=== PATIENT | female | born 1935 | race Caucasian/White ===

== ENCOUNTER 2018-04-21 21:22 | Outpatient (REF) | payer MEDICARE, SELFPAY ==
[2018-04-21 21:52] LABS: Abs Immature Grans 0.01 k/cumm (0.0-0.09); Absolute Basophil Count 0.02 k/cumm (0.0-0.2); Absolute Eosinophil Count 0.14 k/cumm (0.0-0.7); Absolute Lymphocyte Count 2.03 k/cumm (1.2-3.4); Absolute Monocyte Count 0.64 k/cumm (0.11-0.7); Absolute Neutrophil Count 3.31 k/cumm (1.2-6.7); Basophils % 0.3; Eosinophils % 2.3; HCT 35.4 % (36.0-46.0); HGB 11.7 g/dL (12.0-15.5); Immature Grans % 0.2; Mean Corp. HGB Concentration 33.1 g/dL (32.0-36.0); Mean Corpuscular Hemoglobin 32.3 pg (27.0-33.0); Mean Corpuscular Volume 97.8 fL (80-95); Mean Platelet Volume 10.1 fL (8.0-11.0); Monocytes % 10.4; Neutrophils % 53.8; Platelet Count 362 x1000/uL (130-400); RBC 3.62 m/cumm (4.00-5.20); RBC Distribution Width 13.6 % (11.7-14.6); White Blood Cell Count 6.15 k/cumm (4.4-10.8)
[2018-04-21 22:07] LABS: ALT 29 U/L (12-78); AST 25 U/L (15-37); Albumin 3.7 g/dL (3.4-5.0); Alkaline Phosphatase 74 U/L (46-116); Anion Gap 8.5 mmol/L (3-11); BUN 16 mg/dL (7-18); Bilirubin, Total 0.3 mg/dL (0.2-1.0); CO2 26.5 mmol/L (21.0-32.0); CREATININE 1.03 mg/dL (0.55-1.02); Calcium 8.9 mg/dL (8.5-10.1); Chloride 99 mmol/L (98-107); Glucose 90 mg/dL (70-100); Potassium 4.5 mmol/L (3.5-5.1); Sodium 134 mmol/L (136-145); TSH (W/Ref FT4) 1.31 uIU/mL (0.358-3.74)
== END 2018-04-21 21:42 ==
LOC: NCHCN 21:22
PROVIDERS: PCP Nurse Practitioner Family; Visit Provider Nurse Practitioner Family
DX: I10 Essential (primary) hypertension (principal); R42 Dizziness and giddiness
CPT/HCPCS: 80053; 84443; 85025

== ENCOUNTER 2018-04-26 15:54 | Outpatient (REF) | payer MEDICARE, SELFPAY ==
[2018-04-26 23:50] LABS: Ferritin 98 ng/mL (8-388); Folate 19.5 ng/mL (8.6-20.0); Vitamin B12 617 pg/mL (193-986)
== END 2018-04-26 16:14 ==
LOC: NCHCN 15:54
PROVIDERS: PCP Nurse Practitioner Family; Visit Provider Nurse Practitioner Family
DX: D64.9 Anemia, unspecified (principal); R42 Dizziness and giddiness
CPT/HCPCS: 82607; 82728; 82746

== ENCOUNTER 2018-09-07 11:18 | Outpatient (REF) | payer MEDICARE, SELFPAY ==
[2018-09-07 21:09] LABS: HCT 40.8 % (36.0-46.0); HGB 13.3 g/dL (12.0-15.5); Mean Corp. HGB Concentration 32.6 g/dL (32.0-36.0); Mean Corpuscular Hemoglobin 32.2 pg (27.0-33.0); Mean Corpuscular Volume 98.8 fL (80-95); Mean Platelet Volume 10.5 fL (8.0-11.0); Platelet Count 324 x1000/uL (130-400); RBC 4.13 m/cumm (4.00-5.20); RBC Distribution Width 13.9 % (11.7-14.6); White Blood Cell Count 4.75 k/cumm (4.4-10.8)
[2018-09-08 06:31] LABS: Iron 88 ug/dL (50-175); Total Iron Binding Capacity 305 ug/dL (250-450); Transferrin Sat 29 % (15-50)
== END 2018-09-07 11:38 ==
LOC: NCHCN 11:18
PROVIDERS: PCP Nurse Practitioner Family; Visit Provider Family Medicine
DX: D64.9 Anemia, unspecified (principal)
CPT/HCPCS: 85027; 83540; 83550

== ENCOUNTER 2019-06-21 11:09 | Outpatient (REF) | payer OTHER, SELFPAY ==
[2019-06-21 21:07] LABS: Anion Gap 6.6 mmol/L (3-11); BUN 16 mg/dL (7-18); CO2 28.4 mmol/L (21.0-32.0); CREATININE 0.93 mg/dL (0.55-1.02); Calculated LDL 77 mg/dL; Chloride 103 mmol/L (98-107); Cholesterol 161 mg/dL (<200); Estimated GFR 57.58 (mL/min/1.73m2); Glucose 87 mg/dL (74-106); HDL Cholesterol 70 mg/dL (40-60); Potassium 4.5 mmol/L (3.5-5.1); Sodium 138 mmol/L (136-145); Triglyceride 70 mg/dL (<150)
== END 2019-06-21 11:29 ==
LOC: NCHCN 11:09
PROVIDERS: PCP Nurse Practitioner Family; Visit Provider Family Medicine
DX: I10 Essential (primary) hypertension (principal); Z79.01 Long term (current) use of anticoagulants; Z95.0 Presence of cardiac pacemaker
CPT/HCPCS: 80048; 80061

== ENCOUNTER 2020-05-10 20:00 | Outpatient (REF) | payer OTHER, SELFPAY ==
[2020-05-12 16:41] LABS: COVID-19 RT-PCR Result NEGATIVE (Negative)
== END 2020-05-10 20:20 ==
LOC: NCHCN 20:00
PROVIDERS: PCP Nurse Practitioner Family; Visit Provider Nurse Practitioner Family
DX: R09.81 Nasal congestion (principal)
CPT/HCPCS: U0003

== ENCOUNTER 2020-12-07 14:05 | Outpatient (REF) | payer OTHER, SELFPAY | END 2020-12-07 14:06 | disposition home or self-care (01) | LOC: NCHCN 14:05 | PROVIDERS: PCP Nurse Practitioner Family; Visit Provider Registered Nurse | DX: I10 Essential (primary) hypertension (principal) | CPT/HCPCS: 80048 ==

== ENCOUNTER 2021-11-12 21:00 | Outpatient (REF) | payer MEDICARE, SELFPAY ==
[2021-11-12 21:39] LABS: ALT 23 U/L (14-59); Anion Gap 8.4 mmol/L (3-11); BUN 19 mg/dL (7-18); CO2 27.6 mmol/L (21.0-32.0); Calcium 9.6 mg/dL (8.5-10.1); Calculated LDL 92 mg/dL (<100); Chloride 101 mmol/L (98-107); Cholesterol 178 mg/dL (<200); Estimated GFR 52.69 (mL/min/1.73m2); Glucose 90 mg/dL (74-106); HDL Cholesterol 73 mg/dL (40-60); Potassium 5.4 mmol/L (3.5-5.1); Sodium 137 mmol/L (136-145); Triglyceride 67 mg/dL (<150)
== END 2021-11-12 21:01 | disposition home or self-care (01) ==
LOC: NCHCN 21:00
PROVIDERS: PCP Nurse Practitioner Family; Visit Provider Family Medicine
DX: I10 Essential (primary) hypertension (principal); I48.0 Paroxysmal atrial fibrillation; Z13.220 Encounter for screening for lipoid disorders
CPT/HCPCS: 80048; 80061; 84460

== ENCOUNTER 2022-05-13 13:04 | Outpatient (REF) | payer MEDICARE, SELFPAY ==
[2022-05-13 15:13] LABS: HCT 37.4 % (36.0-46.0); HGB 12.4 g/dL (11.2-15.7); MCH 32.2 pg (27.0-33.0); MCHC 33.2 % (32.0-36.0); MCV 97 fL (80-95); MPV 10.3 fL (8.0-11.0); Platelet Count 328 10^3/uL (130-400); RBC 3.85 10^6/uL (3.93-5.22); RDW 13.2 % (11.7-14.6); RDW-SD 47.5 fL; WBC 5.25 10^3/uL (4.4-10.8)
[2022-05-13 15:27] LABS: Anion Gap 9.5 mmol/L (3-11); BUN 24 mg/dL (7-18); CO2 24.5 mmol/L (21.0-32.0); Calcium 9.4 mg/dL (8.5-10.1); Chloride 101 mmol/L (98-107); Estimated GFR 54.87 (mL/min/1.73m2); Glucose 104 mg/dL (74-106); Potassium 4.4 mmol/L (3.5-5.1); Sodium 135 mmol/L (136-145)
== END 2022-05-13 13:05 | disposition home or self-care (01) ==
LOC: NCHCN 13:04
PROVIDERS: PCP Nurse Practitioner Family; Visit Provider Family Medicine
DX: Z79.01 Long term (current) use of anticoagulants (principal); Z86.39 Personal history of other endocrine, nutritional and metabolic disease
CPT/HCPCS: 80048; 85027

== ENCOUNTER 2022-11-07 12:53 | Outpatient (REF) | payer MEDICARE, SELFPAY ==
[2022-11-07 14:43] LABS: Bilirubin Negative (Negative); Blood Trace-intact (Negative); Clarity Clear (Clear); Glucose Negative (Negative); Ketones Negative (Negative); Leukocyte Esterase Negative (Negative); Nitrite Negative (Negative); Specific Gravity 1.015 (1.005-1.025); Urobilinogen 0.2 mg/dL (Up to 0.2)
[2022-11-07 14:51] LABS: Bacteria Negative HPF (Negative); C & S Indicated? No; Casts Negative LPF (Negative); Crystals Negative HPF (Negative); Epithelial Cells Few HPF (Negative); Mucus Negative (Negative); RBC 0-2 HPF (0-2); WBC 0-2 HPF (0-5)
[2022-11-07 14:53] LABS: Anion Gap 6.9 mmol/L (3-11); BUN 20 mg/dL (7-18); CO2 27.1 mmol/L (21.0-32.0); Calcium 8.9 mg/dL (8.5-10.1); Chloride 101 mmol/L (98-107); Estimated GFR 54.87 (mL/min/1.73m2); Glucose 100 mg/dL (74-106); Potassium 4.6 mmol/L (3.5-5.1); Sodium 135 mmol/L (136-145)
== END 2022-11-07 12:54 | disposition home or self-care (01) ==
LOC: NCHCN 12:53
PROVIDERS: PCP Nurse Practitioner Family; Visit Provider Family Medicine
DX: R10.11 Right upper quadrant pain (principal)
CPT/HCPCS: 80048; 81003; 81015

== ENCOUNTER 2022-11-28 14:57 | Outpatient (REF) | payer MEDICARE, SELFPAY ==
--- OUTSIDE RECORDS SUMMARY | 2022-11-28 15:03 | XMS_ITS | CCD ---
Author Name Unknown Address [address] [place] [address] [phone] Organization Unknown Address [address] [place] [address] [phone] Care Team Providers Care Specialist Field Engineer Name Role Phone TASHA PERRIN Attending Physician [phone] Vital Signs Unknown or Not Available. Allergies Allergy Code Allergy Type Reaction Status No Known Drug Allergies 0 No known drug allergies Active Procedures Unknown or Not Available. History of Immunizations Unknown or Not Available. Problems Unknown or Not Available. Results Unknown or Not Available. Active Medications Medication Code Dose Units Frequency Route Modificatio n Start Date/Time ELIQUIS 5MG ORAL TABLET 0 5 MILLIGRAMS DAILY ORAL 00:33 Prescription Detail TAKE 5 MILLIGRAMS ORAL DAILY Losartan Potassium 25MG Oral Tablet [id number] 25 MILLIGRAMS DAILY ORAL 019 00:33 Prescription Detail TAKE 25 MILLIGRAMS ORAL DAILY Simvastatin 10MG Oral Tablet 486042 10 MILLIGRAMS ORAL 9 00:33 Prescription Detail TAKE 10 MILLIGRAMS ORAL Medications Administered During Visit Unknown or Not Available. Encounters Encounter Diagnosis Diagnosis Code Start Date Pain in right leg [id number] 05/14/2022 Social History Smoking Status Code Start Date End Date Never smoker [id number] Patient Decision Aids Unknown or Not Available. Discharge Instructions You were admitted to [facility] on 05/14/2022 14:58 with a principal diagnosis of Pain in right leg You were discharged from [facility] on 05/14/2022 14:58 Should you have any questions prior to discharge, please contact a member of your healthcare team. If you have left the hospital and have any questions, please contact your primary care physician. Chief Complaint and Reason For Visit Unknown or Not Available. Function Status Unknown or Not Available. Plan of Care Unknown or Not Available. Referral/Transition of Care Unknown or Not Available.
--- OUTSIDE RECORDS SUMMARY | 2022-11-28 15:04 | XMS_ITS | CCD ---
Author Name Unknown Address [address] [place] [address] [phone] Organization Unknown Address [address] [place] [address] [phone] Care Team Providers Care A P Supervisor Name Role Phone TASHA PERRIN Attending Physician [phone] Vital Signs Unknown or Not Available. Allergies [...] ORAL DAILY Losartan Potassium 25MG Oral Tablet 749951 25 MILLIGRAMS DAILY ORAL 019 00:33 Prescription Detail TAKE 25 MILLIGRAMS ORAL DAILY Simvastatin 10MG Oral Tablet 578624 10 MILLIGRAMS ORAL 9 00:33 Prescription Detail TAKE 10 MILLIGRAMS ORAL Medications Administered During Visit Unknown or Not Available. Encounters Encounter Diagnosis Diagnosis Code Start Date Right upper quadrant pain R1011 2022 Social History Smoking Status Code Start Date End Date Never smoker [id number] Patient Decision Aids Unknown or Not Available. Discharge Instructions You were admitted to [facility] on 11/06/2022 08:34 with a principal diagnosis of Right upper quadrant pain You were discharged from [facility] on 11/06/2022 08:34 Should you have any questions prior to discharge, please contact a member of your healthcare team. If you have left the hospital and have any questions, please contact your primary care physician. Chief Complaint and Reason For Visit Chief Complaint Date of Onset RUQ PAIN Function Status Unknown or Not Available. Plan of Care Unknown or Not Available. Referral/Transition of Care Unknown or Not Available.
--- OUTSIDE RECORDS SUMMARY | 2022-11-28 15:04 | XMS_ITS | CCD ---
Author Name Unknown Address [address] [place] [address] [phone] Organization Unknown Address [address], [place] [id number] Care Team Providers Care Infection Control Preventionist Name Role Phone KIM GOLD Attending Physician [phone] KIM GOLD Rounding (Secondary) Physicia n [phone] Vital Signs Unknown or Not Available. Allergies [...] ORAL DAILY Losartan Potassium 25MG Oral Tablet 183089 25 MILLIGRAMS DAILY ORAL 019 00:33 Prescription Detail TAKE 25 MILLIGRAMS ORAL DAILY Simvastatin 10MG Oral Tablet 234166 10 MILLIGRAMS ORAL 9 00:33 Prescription Detail TAKE 10 MILLIGRAMS ORAL Medications Administered During Visit Unknown or Not Available. Encounters Encounter Diagnosis Diagnosis Code Start Date Pain of right lower leg [id number] 08/12/19 23 Social History Smoking Status Code Start Date End Date Never smoker [id number] Patient Decision Aids Unknown or Not Available. Discharge Instructions You were admitted to [facility] on 08/11/2022 10:01 with a principal diagnosis of Pain in right lower leg You were discharged from [facility] on 08/11/2022 00:00 Should you have any questions prior to [...]
--- OUTSIDE RECORDS SUMMARY | 2022-11-28 15:04 | XMS_ITS | CCD ---
Author Name Unknown Address [address] [place] [address] [phone] Organization Unknown Address [address] [place] [address] [phone] Care Team Providers Care Audit Clerks Supervisor Name Role Phone MADIHA PERRINAH Attending Physician [phone] Vital Signs Unknown or Not Available. Allergies [...] ORAL DAILY Losartan Potassium 25MG Oral Tablet 887442 25 MILLIGRAMS DAILY ORAL 019 00:33 Prescription Detail TAKE 25 MILLIGRAMS ORAL DAILY Simvastatin 10MG Oral Tablet 296925 10 MILLIGRAMS ORAL 9 00:33 Prescription Detail TAKE 10 MILLIGRAMS ORAL Medications Administered During Visit Unknown or Not Available. Encounters Encounter Diagnosis Diagnosis Code Start Date Sprain of unspecified ligame nt of left ankle, initial encounter [id number] 11/22/2020 Social History Smoking Status Code Start Date End Date Never smoker [id number] Patient Decision Aids Unknown or Not Available. Discharge Instructions You were admitted to [facility] on 11/22/2020 12:52 with a principal diagnosis of Sprain of unspecified ligament of left ankle, initial encounter You were discharged from [facility] on 11/22/2020 12:52 Should you have any questions prior to [...]
[2022-11-28 16:49] LABS: BUN 20 mg/dL (7-18); Estimated GFR 54.87 (mL/min/1.73m2)
== END 2022-11-28 14:58 | disposition home or self-care (01) ==
LOC: NCHCN 14:57
PROVIDERS: PCP Nurse Practitioner Family; Visit Provider Family Medicine
DX: I10 Essential (primary) hypertension (principal)
CPT/HCPCS: 84520; 82565

== ENCOUNTER 2023-06-16 20:55 | Outpatient (REF) | payer MEDICARE, SELFPAY ==
--- OUTSIDE RECORDS SUMMARY | 2023-06-16 20:59 | XMS_ITS | CCD ---
Author Name Unknown Address [address] [place] [address] [phone] Organization Unknown Address [address] [place] [address] [phone] Care Team Providers Care Client Technologies Analyst Name Role Phone MADIHA PERRINAH Attending Physician [phone] Vital Signs Unknown or Not Available. Allergies [...] ORAL DAILY Losartan Potassium 25MG Oral Tablet 142571 25 MILLIGRAMS DAILY ORAL 019 00:33 Prescription Detail TAKE 25 MILLIGRAMS ORAL DAILY Simvastatin 10MG Oral Tablet 950161 10 MILLIGRAMS ORAL 9 00:33 Prescription Detail TAKE 10 MILLIGRAMS ORAL Medications Administered During Visit Unknown or Not Available. Encounters Encounter Diagnosis Diagnosis Code Start Date Sprain of unspecified ligame nt of left ankle, initial encounter [id number] 11/22/2020 Social History Smoking Status Code Start Date End Date Never smoker [id number] Patient Decision Aids Unknown or Not Available. Discharge Instructions You were admitted to [facility] on 11/22/2020 12:52 with a principal diagnosis of Sprain of unspecified ligament of left ankle, initial encounter You were discharged from [facility] on 11/22/2020 12:52 Should you have [...]
--- OUTSIDE RECORDS SUMMARY | 2023-06-16 20:59 | XMS_ITS | CCD ---
Author Name Unknown Address [address] [place] [address] [phone] Organization Unknown Address [address] [place] [address] [phone] Care Team Providers Care Certified Ophthalmic Technologist Name Role Phone TASHA PERRIN Attending Physician [phone] Vital Signs Unknown or Not Available. Allergies [...] ORAL DAILY Losartan Potassium 25MG Oral Tablet 748606 25 MILLIGRAMS DAILY ORAL 019 00:33 Prescription Detail TAKE 25 MILLIGRAMS ORAL DAILY Simvastatin 10MG Oral Tablet 450375 10 MILLIGRAMS ORAL 9 00:33 Prescription Detail TAKE 10 MILLIGRAMS ORAL Medications Administered During Visit Unknown or Not Available. Encounters Encounter Diagnosis Diagnosis Code Start Date Pain in right leg U39246 05/14/2022 Social History Smoking Status Code Start Date End Date Never smoker [id number] Patient Decision Aids Unknown or Not Available. Discharge Instructions You were admitted to [facility] on 05/14/2022 14:58 with a principal diagnosis of Pain in right leg You were discharged from [facility] on 05/14/2022 14:58 Should you have any [...]
--- OUTSIDE RECORDS SUMMARY | 2023-06-16 20:59 | XMS_ITS | CCD ---
Author Name Unknown Address [address] [place] [address] [phone] Organization Unknown Address [address] [place] [address] [phone] Care Team Providers Care Tongue Trimmer Name Role Phone TASHA PERRIN Attending Physician [phone] Vital Signs Unknown or Not Available. Allergies [...] ORAL DAILY Losartan Potassium 25MG Oral Tablet 590095 25 MILLIGRAMS DAILY ORAL 019 00:33 Prescription Detail TAKE 25 MILLIGRAMS ORAL DAILY Simvastatin 10MG Oral Tablet 258828 10 MILLIGRAMS ORAL 9 00:33 Prescription Detail TAKE 10 MILLIGRAMS ORAL Medications Administered During Visit Unknown or Not Available. Encounters Encounter Diagnosis Diagnosis Code Start Date Right upper quadrant pain R1011 2022 Social History Smoking Status Code Start Date End Date Never smoker [id number] Patient Decision Aids Unknown or Not Available. Discharge Instructions You were admitted to [facility] on 12/26/2022 12:58 with a principal diagnosis of Right upper quadrant pain You were discharged from [facility] on 12/26/2022 12:58 Should you have any questions prior to [...]
--- OUTSIDE RECORDS SUMMARY | 2023-06-16 20:59 | XMS_ITS | CCD ---
Author Name Unknown Address [address] [place] [address] [phone] Organization Unknown Address [address] [place] [address] [phone] Care Team Providers Care Pocket Operator Name Role Phone Bve ALLEN Attending Physician 0 Vital Signs Unknown or Not Available. Allergies Allergy Code Allergy Type Reaction Status No Known Drug Allergies 0 No known drug allergies Active Procedures Unknown or Not Available. History of Immunizations Unknown or Not Available. Problems Unknown or Not Available. Results DANNA BARRONJEANX* - [place] ect Date/Time: 06/21/2021 11:29 Test Name Code Test Result Test Units Test Ref Rang e Tier- PRE-OP N/A SARS COV2 RNA: 88798-8 NEGATIVE N/A REFERENCE RANGE: NEGAT Active Medications Medication Code Dose Units Frequency Route Modificatio n Start Date/Time ELIQUIS 5MG ORAL TABLET 0 5 MILLIGRAMS DAILY ORAL 019 00:33 Prescription Detail TAKE 5 MILLIGRAMS ORAL DAILY Losartan Potassium 25MG Oral Tablet 292725 25 MILLIGRAMS DAILY ORAL 019 00:33 Prescription Detail TAKE 25 MILLIGRAMS ORAL DAILY Simvastatin 10MG Oral Tablet 844450 10 MILLIGRAMS ORAL 9 00:33 Prescription Detail TAKE 10 MILLIGRAMS ORAL Medications Administered During Visit Unknown or Not Available. Encounters Encounter Diagnosis Diagnosis Code Start Date Pre-surgery testing [id number] 06/21/2021 Social History Smoking Status Code Start Date End Date Never smoker [id number] Patient Decision Aids Unknown or Not Available. Discharge Instructions You were admitted to [facility] on 06/21/2021 19:12 with a principal diagnosis of Encounter for preprocedural laboratory examination You had the following tests done:DANNA BARRONONIX* You were discharged from [facility] on 06/21/2021 19:12 Should you have any questions prior to [...]
--- OUTSIDE RECORDS SUMMARY | 2023-06-16 20:59 | XMS_ITS | CCD ---
Author Name Unknown Address [address] [place] [address] [phone] Organization Unknown Address [address], [place] [phone] Care Team Providers Care Rn Enterostomal Name Role Phone KIM GOLD Attending Physician [phone] KIM GOLD Rounding (Secondary) Physicia n [phone] Vital Signs Unknown or Not Available. Allergies [...] ORAL DAILY Losartan Potassium 25MG Oral Tablet 757146 25 MILLIGRAMS DAILY ORAL 019 00:33 Prescription Detail TAKE 25 MILLIGRAMS ORAL DAILY Simvastatin 10MG Oral Tablet 215398 10 MILLIGRAMS ORAL 9 00:33 Prescription Detail TAKE 10 MILLIGRAMS ORAL Medications Administered During Visit Unknown or Not Available. Encounters Encounter Diagnosis Diagnosis Code Start Date Pain of right lower leg [id number] 08/12/19 23 Social History Smoking Status Code Start Date End Date Never smoker [id number] Patient Decision Aids Unknown or Not Available. Discharge Instructions You were admitted to [facility] on 08/11/2022 10:01 with a principal diagnosis of Pain in right lower leg You were discharged from [facility] on 08/11/2022 00:00 Should you have [...]
[2023-06-16 21:48] LABS: ALT 27 U/L (14-59); AST 35 U/L (15-37); Albumin 3.8 g/dL (3.4-5.0); Alkaline Phosphatase 67 U/L (46-116); Bilirubin, Direct 0.1 mg/dL (0.0-0.2); Bilirubin, Total 0.4 mg/dL (0.2-1.0); Total Protein 7.5 g/dL (6.4-8.2)
== END 2023-06-16 20:56 | disposition home or self-care (01) ==
LOC: NCHCN 20:55
PROVIDERS: PCP Nurse Practitioner Family; Visit Provider Internal Medicine
DX: R10.11 Right upper quadrant pain (principal)
CPT/HCPCS: 82040; 82247; 82248; 84075; 84155; 84450; 84460

== ENCOUNTER 2024-01-13 19:47 | Outpatient (REF) | payer MEDICARE, SELFPAY ==
[2024-01-13 21:44] LABS: HCT 38.1 % (36.0-46.0); HGB 12.5 g/dL (11.2-15.7); MCH 32.4 pg (27.0-33.0); MCHC 32.8 % (32.0-36.0); MCV 99 fL (80-95); MPV 10.6 fL (8.0-11.0); Platelet Count 300 10^3/uL (130-400); RBC 3.86 10^6/uL (3.93-5.22); RDW 13.4 % (11.7-14.6); RDW-SD 47.8 fL; WBC 6.27 10^3/uL (4.4-10.8)
[2024-01-13 22:42] LABS: Anion Gap 9.5 mmol/L (3-11); BUN 25 mg/dL (7-18); CO2 23.5 mmol/L (21.0-32.0); Calcium 9.7 mg/dL (8.5-10.1); Calculated LDL 59 mg/dL (<100); Chloride 104 mmol/L (98-107); Cholesterol 155 mg/dL (<200); Estimated GFR 54.53 (mL/min/1.73m2); Glucose 149 mg/dL (74-106); HDL Cholesterol 72 mg/dL (40-60); Potassium 4.3 mmol/L (3.5-5.1); Sodium 137 mmol/L (136-145); Triglyceride 121 mg/dL (<150)
== END 2024-01-13 19:48 | disposition home or self-care (01) ==
LOC: NCHCN 19:47
PROVIDERS: PCP Nurse Practitioner Family; Visit Provider Family Medicine
DX: I10 Essential (primary) hypertension (principal); E78.5 Hyperlipidemia, unspecified
CPT/HCPCS: 80048; 80061; 85027

== ENCOUNTER 2024-10-04 17:52 | Outpatient (REF) | payer MEDICARE, SELFPAY ==
[2024-10-04 21:34] LABS: Abs Immature Grans 0.02 10^3/uL (0.0-0.06); Absolute Basophil Count 0.04 10^3/uL (0.0-0.2); Absolute Eosinophil Count 0.09 10^3/uL (0.0-0.7); Absolute Lymphocyte Count 1.44 10^3/uL (1.2-3.4); Absolute Monocyte Count 0.72 10^3/uL (0.1-0.8); Absolute Neutrophil Count 3.54 10^3/uL (1.2-6.7); Basophils % 0.7 %; ESR 51 mm/hr (0-30); Eosinophils % 1.5 %; HCT 29.4 % (36.0-46.0); HGB 9.4 g/dL (11.2-15.7); Immature Grans % 0.3 %; Lymphocytes % 24.6 %; MCH 29.9 pg (27.0-33.0); MCV 94 fL (80-95); MPV 9.7 fL (8.0-11.0); Monocytes % 12.3 %; Neutrophils % 60.6 %; Platelet Count 539 10^3/uL (130-400); RBC 3.14 10^6/uL (3.93-5.22); RDW 13.4 % (11.7-14.6); WBC 5.85 10^3/uL (4.4-10.8)
[2024-10-04 22:48] LABS: Anion Gap 12.8 mmol/L (3-11); BUN 23 mg/dL (7-18); CO2 23.2 mmol/L (21.0-32.0); CREATININE 1.1 mg/dL (0.55-1.02); Calcium 9.3 mg/dL (8.5-10.1); Chloride 100 mmol/L (98-107); Estimated GFR 48.33 (mL/min/1.73m2); Glucose 91 mg/dL (74-106); Potassium 4.8 mmol/L (3.5-5.1); Sodium 136 mmol/L (136-145)
[2024-10-05 13:56] LABS: TSH (W/Ref FT4) 1.51 uIU/mL (0.36-3.74)
[2024-10-05 21:42] LABS: Rheumatoid Factor <8.6 IU/mL (<12.0)
[2024-10-06 09:44] LABS: Cyclic Citrullinated Peptide <2.5 U/mL (<5.0)
[2024-10-06 10:13] LABS: Lyme Ab w Rflx to Lyme Confirm Negative (Negative)
== END 2024-10-04 17:53 | disposition home or self-care (01) ==
LOC: NCHCN 17:52
PROVIDERS: PCP Nurse Practitioner Family; Visit Provider Family Medicine
DX: M35.3 Polymyalgia rheumatica; M19.90 Unspecified osteoarthritis, unspecified site; R53.83 Other fatigue
CPT/HCPCS: 80048; 85652; 86200; 84443; 85025; 86140; 86431; 86618